=== PATIENT | female | born 1970 | race Caucasian/White ===

== ENCOUNTER 2023-09-29 11:45 | Emergency (ER) | payer SELFPAY | END 2023-09-29 12:53 | disposition home or self-care (01) | LOC: CSHERS 11:45 | DX: M25.512 Pain in left shoulder (principal); M25.551 Pain in right hip; L20.9 Atopic dermatitis, unspecified; J43.9 Emphysema, unspecified; F17.210 Nicotine dependence, cigarettes, uncomplicated | CPT/HCPCS: 99283 ==

== ENCOUNTER 2024-08-10 03:40 | Emergency (ER) | payer SELFPAY ==
[2024-08-10] MEDS ORDERED: Ondansetron PF 4 MG/2 ML Vial ONE (04:02)
[2024-08-10] MEDS ORDERED: Morphine 4 MG/ML VIAL ONE ×2 (04:02→04:55)
[2024-08-10 04:29] LABS: #Basophils 0.08 10x3/uL (0.0-0.2); #Monocytes 0.62 10x3/uL (0.0-1.1); #Neutrophils 3.64 10x3/uL (1.5-8.4); %Basophils 0.9 % (0.0-2.0); %Eosinophils 3.3 % (0.0-6.0); %Lymphocytes 48.2 % (18.0-47.0); %Monocytes 6.9 % (0.0-10.0); %Neutrophils 40.6 % (40.0-75.0); Hematocrit 47.1 % (34.9-44.5); Hemoglobin 16.2 g/dL (12.0-15.5); Mean Corpuscular HGB CONC 34.4 g/dL (32.0-36.0); Mean Corpuscular Hemoglobin 32.7 pg (27.0-33.0); Mean Corpuscular Volume 95.2 fL (81.6-98.3); Mean Platelet Volume 9.9 fL (7.4-10.4); Platelet Count 291 10x3/uL (150-450); RBC Distribution Width 12.9 % (11.5-14.5); Red Blood Cell (RBC) Count 4.95 10x6/uL (3.90-5.03)
[2024-08-10 04:39] LABS: ALT (SGPT) 38 U/L (8-55); AST (SGOT) 33 U/L (5-34); Albumin 4.4 g/dL (3.5-5.0); Alkaline Phosphatase 66 U/L (40-110); Anion Gap 20 mmol/L (10-20); BUN (Urea Nitrogen) 6 mg/dL (9.8-20.1); Bilirubin, Total 0.3 mg/dL (0.2-1.2); Calc. Creatinine Clearance 0 mL/min (70-130); Calcium 9.6 mg/dL (7.8-10.44); Carbon Dioxide 19 mmol/L (22-29); Chloride 105 mmol/L (98-107); Estimated GFR 86; Globulin 4.2 g/dL (2.4-3.5); Glucose 100 mg/dL (70-105); Potassium 3.8 mmol/L (3.5-5.1); Protein, Total 8.6 g/dL (6.0-8.3); Sodium 140 mmol/L (136-145)
[2024-08-10] MEDS ORDERED: Ketorolac Tromethamine 30 MG (1 mL) VIAL ONE (04:55)
[2024-08-10 05:22] LABS: PTT 27.1 sec (22.0-33.0); Prothrombin Time 10.6 sec (9.5-12.1)
[2024-08-10] MEDS ORDERED: CEFAZOLIN 2 GM in Sodium Chloride 0.9% 100 ML IVPB SCH (08:15)
== END 2024-08-10 06:19 ==
LOC: CSHERS 03:40
DX: S82.302A Unspecified fracture of lower end of left tibia, initial encounter for closed fracture (principal); S82.402A Unspecified fracture of shaft of left fibula, initial encounter for closed fracture; F17.210 Nicotine dependence, cigarettes, uncomplicated; W01.0XXA Fall on same level from slipping, tripping and stumbling without subsequent striking against object, initial encounter
CPT/HCPCS: 36415; 80053; 85025; 85610; 85730; 86850; 86900; 86901; 96374; 96375; 96376; J1885; J2272; J2405